=== PATIENT | male | born 2000 | race Two or more races ===

== ENCOUNTER 2022-09-10 07:50 | Emergency (ER) | payer OTHER ==
[~2022-09-10] VITALS: Ht 167.6 cm; Wt 83.9 kg
[2022-09-10] MEDS ORDERED: OFLOXACIN5 M1 OT (09:38)
== END 2022-09-10 10:14 ==
LOC: ER 07:50
DX: H60.92 Unspecified otitis externa, left ear (principal)

== ENCOUNTER → 2022-09-17 06:39 | Outpatient (CLI) | payer OTHER ==
[~2022-09-17 06:39] MED LIST: OFLOXACIN5 M1 OT
== END | disposition home or self-care (01) ==
LOC: LAB 06:39
PROVIDERS: ATTEND Obstetrics & Gynecology
DX: Z20.818 Contact with and (suspected) exposure to other bacterial communicable diseases (principal); Z20.828 Contact with and (suspected) exposure to other viral communicable diseases